=== PATIENT | male | born 1970 | race African-American/Black ===

== ENCOUNTER 2016-08-03 10:18 | Inpatient (IN) | payer OTHER ==
[2016-08-03 10:53] VITALS: BMI 33.9
--- NOTE | 2016-08-03 12:53 | HP ---
CIWA Score - CIWA Score Nausea/Vomitin-Mild Nausea/No Vomiting Muscle Tremors: 4-Moderate,w/Arms Extend Anxiety: 3 Agitation: 4-Moderately Restless Paroxysmal Sweats: 3 Orientation: 0-Oriented Tacttile Disturbances: 0-None Auditory Disturbances: 0-None Visual Disturbances: 0-None Headache: 0-None Present CIWA-Ar Total Score: 15 Admission ROS BHS - HPI Chief Complaint: I want to get clean and stay sober. Allergies/Adverse Reactions: Allergies Allergy/AdvReac Type Severity Reaction Status Date / Time [place] And Derivatives Allergy Severe Hives Verified 08/03/16 11:25 penicillin G Allergy Severe Hives Verified 08/03/16 11:25 lactose AdvReac Severe DIARRHEA Verified 08/03/16 11:25 History of Present Illness: pt is a 46yr old male with a history of alcohol and crack/cocaine dependence seeking detox for treatment. Exam Limitations: No Limitations - Ebola screening Have you traveled outside of the country in the last 21 days: No Have you had contact with anyone from an Ebola affected area: No Have you been sick,other than usual withdrawal symptoms: No Do you have a fever: No - Review of Systems Constitutional: Chills, Diaphoresis, Loss of Appetite, Night Sweats, Changes in sleep, Unintentional Wgt. Loss EENT: reports: No Symptoms Reported Respiratory: reports: Cough Cardiac: reports: Syncope GI: reports: Poor Appetite, Poor Fluid Intake, Indigestion : reports: No Symptoms Reported Musculoskeletal: reports: Back Pain, Joint Pain Integumentary: reports: Flushing, Sweating Neuro: reports: Headache, Tingling, Tremors Endocrine: reports: Excessive Sweating, Flushing, Intolerance to Cold, Intolerance to Heat Hematology: reports: Anemia Psychiatric: reports: No Sypmtoms Reported, Judgement Intact, Mood/Affect Appropiate, Orientated x3, Agitated Other Systems: Reviewed and Negative Patient History - Patient Medical History Hx Anemia: Yes Hx Asthma: Yes (albuterol) Hx Chronic Obstructive Pulmonary Disease (COPD): No Hx Cancer: No Hx Cardiac Disorders: No Hx Congestive Heart Failure: No Hx Hypertension: Yes Hx Hypercholesterolemia: No Hx Pacemaker: No HX Cerebrovascular Accident: No Hx Seizures: No Hx Dementia: No Hx Diabetes: No Hx Gastrointestinal Disorders: Yes (acid reflux) Hx Liver Disease: No Hx Genitourinary Disorders: No Hx Sexually Transmitted Disorders: Yes (gonorrhea) Hx Renal Disease (ESRD): No Hx Thyroid Disease: No Hx Human Immunodeficiency Virus (HIV): No (negative) Hx Hepatitis C: No (negative) Hx Depression: Yes Hx Suicide Attempt: Yes (pill overdose at age 13; denies any S/H ideation) Hx Bipolar Disorder: Yes Hx Schizophrenia: Yes - Patient Surgical History Past Surgical History: No Hx Neurologic Surgery: No Hx Cataract Extraction: No Hx Cardiac Surgery: No Hx Lung Surgery: No Hx Breast Surgery: No Hx Breast Biopsy: No Hx Abdominal Surgery: No Hx Appendectomy: No Hx Cholecystectomy: No Hx Genitourinary Surgery: No Hx Section: No Hx Orthopedic Surgery: No Anesthesia Reaction: No - PPD History Previous Implant?: Yes Documented Results: Negative w/o proof Implanted On Prior [facility] Admission?: No Date: 08/03/16 PPD to be Administered?: Yes - Reproductive History Patient is a Female of Child Bearing Age (11 -55 yrs old): No - Smoking Cessation Smoking history: Current every day smoker Have you smoked in the past 12 months: Yes Aproximately how many cigarettes per day: 10 Hx Chewing Tobacco Use: No Initiated information on smoking cessation: Yes 'Breaking Loose' booklet given: 08/03/16 - Substance & Tx. History Hx Alcohol Use: Yes Hx Substance Use: Yes Substance Use Type: Alcohol, Cocaine Hx Substance Use Treatment: Yes - Substances Abused Crack Route: Smoking Frequency: Daily Amount used: $30 Age of first use: 41 Date of Last Use: 08/01/16 Alcohol-vodka/beer Route: Oral Frequency: Daily Amount used: 2-3 pts./2-3 6 pks. Age of first use: 39 Date of Last Use: 08/02/16 Family Disease History - Family Disease History Family History: Denies Admission Physical Exam BHS - Vital Signs Vital Signs: Vital Signs - 24 hr 08/03/16 10:50 Temperature 96.1 F L Pulse Rate 67 Respiratory 16 Rate Blood Pressure 144/85 - Physical General Appearance: Yes: Appropriately Dressed, Moderate Distress, Tremorous, Irritable, Sweating, Anxious HEENTM: Yes: Hearing grossly Normal, Normal Voice Respiratory: Yes: Lungs Clear, Normal Breath Sounds, No Respiratory Distress Neck: Yes: No masses,lesions,Nodules Breast: Yes: Within Normal Limits Cardiology: Yes: Regular Rhythm, Regular Rate, S1, S2 Abdominal: Yes: Normal Bowel Sounds, Non Tender, Soft Genitourinary: Yes: Within Normal Limits Back: Yes: Normal Inspection Musculoskeletal: Yes: full range of Motion Extremities: Yes: Normal Capillary Refill, Normal Inspection, Non-Tender, Tremors Neurological: Yes: Fully Oriented, Alert, Normal Response Integumentary: Yes: Normal Color, Diaphoresis Lymphatic: Yes: Within Normal Limits - Diagnostic (1) Alcohol dependence with uncomplicated withdrawal Current Visit: Yes Status: Chronic (2) Hypertension Current Visit: Yes Status: Chronic Qualifiers: Hypertension type: essential hypertension Qualified Code(s): I10 - Essential (primary) hypertension (3) Asthma Current Visit: Yes Status: Chronic Qualifiers: Asthma severity: mild intermittent Asthma complication type: uncomplicated Qualified Code(s): J45.20 - Mild intermittent asthma, uncomplicated (4) Acid reflux Current Visit: Yes Status: Chronic Qualifiers: Esophagitis presence: without esophagitis Qualified Code(s): K21.9 - Gastro-esophageal reflux disease without esophagitis Cleared for Admission S - Detox or Rehab [facility] Level of Care: Medically Managed Detox Regimen/Protocol: Librium [facility] Breath Alcohol Content Breath Alcohol Content: 0 Urine Drug Screen - Results Drug Screen Negative: No Urine Drug Screen Results: NILSA-Cocaine
[2016-08-03] MEDS ORDERED: MAGNESIUM CITRATE 300 ML BOTTLE PO PRN (13:03)
[2016-08-03] MEDS ORDERED: LOPERAMIDE HCL 2 MG CAPSULE PO PRN (13:03)
[2016-08-03] MEDS ORDERED: hydrOXYzine PAMOATE 50 MG CAPSULE (FP) PO PRN (13:03)
[2016-08-03] MEDS ORDERED: IBUPROFEN 400 MG TABLET (FP) PO PRN (13:03)
[2016-08-03] MEDS ORDERED: P-EPHED 60MG/TRIPROLIDI 2.5MG TABLET PO PRN (13:03)
[2016-08-03] MEDS ORDERED: guaiFENesin/D-METHORPHAN HB 10 ML UNIT-DOSE CUPS PO PRN (13:03)
[2016-08-03] MEDS ORDERED: MAGNESIUM HYDROX 2400MG/30ML ORAL SUSPENSION 30 ML CUP PO PRN (13:03)
[2016-08-03] MEDS ORDERED: chlordiazePOXIDE HCL 25 MG CAPSULE PO PRN (13:03)
[2016-08-03] MEDS ORDERED: diphenhydrAMINE HCL 50 MG CAPSULE PO PRN (13:03)
[2016-08-03] MEDS ORDERED: NICOTINE POLACRILEX 4 MG GUM BC PRN (13:03)
[2016-08-03] MEDS ORDERED: MENTHOL/PHENOL 1 EACH UD MM PRN (13:03)
[2016-08-03] MEDS ORDERED: MAG HYDROX/AL HYDROX/SIMETH 30 ML UNIT-DOSE CUP PO PRN (13:03)
[2016-08-03] MEDS ORDERED: chlordiazePOXIDE HCL 25 MG CAPSULE PO ONE (13:09)
[2016-08-03] MEDS ORDERED: ALBUTEROL SO4 6.7 GM HFA INHALER IH PRN (13:16)
[2016-08-03] MEDS: amLODIPine BESYLATE 10 MG TABLET (FP) PO SCH (15:18)
--- NOTE | 2016-08-03 16:21 | EKG ---
Test Reason : Blood Pressure : / mmHG Vent. Rate : 071 BPM Atrial Rate : 071 BPM P-R Int : 164 ms QRS Dur : 084 ms QT Int : 380 ms P-R-T Axes : 059 080 054 degrees QTc Int : 412 ms NORMAL SINUS RHYTHM POSSIBLE LEFT ATRIAL ENLARGEMENT LEFT VENTRICULAR HYPERTROPHY NONSPECIFIC T WAVE ABNORMALITY ABNORMAL ECG NO PREVIOUS ECGS AVAILABLE Confirmed by LEONARD VARNER MD ([id number]) on 08/03/2016 4:21:24 PM Referred By: Confirmed By:LEONARD VARNER MD
--- NOTE | 2016-08-03 16:56 | CONSULT ---
[facility] Psychiatric Consult - Data Date of interview: 08/03/16 Admission source: [facility] Identifying data: First admission to [facility] for this 46 y/o AA male seeking detox treatment on for alcohol and cocaine (crack) dependence.Patient is single,a father of six,homeless,unemployed and supported on welfare. Substance Abuse History: - Smoking Cessation. Smoking history: Current every day smoker. Have you smoked in the past 12 months: Yes. Aproximately how many cigarettes per day: 10. Hx Chewing Tobacco Use: No. Initiated information on smoking cessation: Yes. 'Breaking Loose' booklet given: 08/03/16. - Substance & Tx. History. Hx Alcohol Use: Yes. Hx Substance Use: Yes. Substance Use Type : Alcohol, Cocaine. Hx Substance Use Treatment: Yes. - Substances Abused. Crack. Route: Smoking. Frequency: Daily. Amount used: $30. Age of first use : 41. Date of Last Use: 08/01/16. Alcohol-vodka/beer. Route: Oral. Frequency: Daily. Amount used: 2-3 pts./2-3 6 pks. Age of first use: 39. Date of Last Use: 08/02/16. Patient confirms this pattern of substance use in my interview. Medical History: GERD,bronchial asthma,hypercholesterolemia and a history of treatment for gonorrhea. Psychiatric History: No reported history of psychiatric hospitalizations.Patient is,however,diagnosed with " bipolar schizophrenia " and he is maintained on a regime of olanzapine and trazodone at his residential setting ([facility]).Doses are not recalled.Mr Peres reports a remote history of suicide attempt,age 13,via overdose with medications.Insomnia reported as severe. Physical/Sexual Abuse/Trauma History: Patient denies. Additional Comment: Urine Drug Screen Results: NILSA-Cocaine.Noted. Mental Status Exam - Mental Status Exam Alert and Oriented to: Time, Place, Person Cognitive Function: Good Patient Appearance: Unkempt, Disheveled Mood: Nervous, Withdrawn, Anxious, Apprehensive Affect: Mood Congruent Patient Behavior: Fatigued, Appropriate, Cooperative Speech Pattern: Clear, Appropriate Voice Loudness: Normal Thought Process: Goal Oriented Thought Disorder: Not Present Hallucinations: Denies Suicidal Ideation: Denies Homicidal Ideation: Denies Insight/Judgement: Poor Sleep: Poorly, Difficulty falling asleep Appetite: Good Muscle strength/Tone: Normal Gait/Station: Normal Psychiatric Findings - Problem List ([place] 1, 2,3) (1) Alcohol dependence with uncomplicated withdrawal Current Visit: Yes Status: Acute (2) Cocaine dependence Current Visit: Yes Status: Acute (3) Nicotine dependence Current Visit: Yes Status: Acute (4) Schizoaffective disorder Current Visit: Yes Status: Chronic Comment: Self-report. (5) Acid reflux Current Visit: Yes Status: Chronic Qualifiers: Esophagitis presence: without esophagitis Qualified Code(s): K21.9 - Gastro-esophageal reflux disease without esophagitis (6) Asthma Current Visit: Yes Status: Chronic Qualifiers: Asthma severity: mild intermittent Asthma complication type: uncomplicated Qualified Code(s): J45.20 - Mild intermittent asthma, uncomplicated (7) Hypertension Current Visit: Yes Status: Chronic Qualifiers: Hypertension type: essential hypertension Qualified Code(s): I10 - Essential (primary) hypertension - Initial Treatment Plan Initial Treatment Plan: Psychoeducation.Detoxification.Medications : depakote 750 mg po bid + olanzapine 15 mg po hs + trazodone 50 mg po hs.Doses of trazodone and zyprexa are slightly reduced to avoid oversedation from drug-drug interactions.Titration will follow in 24-48 hours if good tolerability is demonstrated.Side effects/benefits discussed with the patient,including the risk of priapism (trazodone).He gives his consent (verbal) to follow this careplan.Valproic acid level is ordered.Result will be followed.Observation.Medications confirmed via review of pharmacy claims @ [facility] (filled scripts on 07/21/16).See database on file.
[2016-08-03] MEDS: chlordiazePOXIDE HCL 25 MG CAPSULE PO SCH ×2 (17:34→22:38)
[2016-08-03 20:12] LABS: URINE APPEARANCE CLEAR; URINE BILIRUBIN NEGATIVE (NEGATIVE); URINE BLOOD NEGATIVE (NEGATIVE); URINE COLOR AMBER; URINE GLUCOSE (UA) NEGATIVE (NEGATIVE); URINE KETONE NEGATIVE (NEGATIVE); URINE NITRITE NEGATIVE (NEGATIVE); URINE UROBILINOGEN 4.0 E.U/dl E.U./dl (0.2-1.0)
[2016-08-03 20:13] LABS: URINE LEUK ESTERASE TRACE (NEGATIVE); URINE PROTEIN 1+ (NEGATIVE)
[2016-08-03 20:32] LABS: URINE MUCUS MANY; URINE RBC 2 /hpf (0-3); URINE WBC 5 /hpf (3-5)
[2016-08-03] MEDS: THIAMINE HCL 100 MG TABLET (FP) PO SCH (22:38)
[2016-08-03] MEDS: DIVALPROEX SODIUM 250 MG TABLET E.C. (FP) PO SCH (22:39)
[2016-08-03] MEDS: RANITIDINE HCL 150 MG TABLET (FP) PO SCH (22:39)
[2016-08-03] MEDS: OLANZapine 7.5 MG TABLET PO SCH (22:40)
[2016-08-03] MEDS: traZODone HCL 50 MG TABLET (FP) PO SCH (22:40)
--- NOTE | 2016-08-03 23:25 | PN ---
BHS Progress Note Note: received nurse call bp 154/98 50 mg librium administered repeat bp around 2 am continue detox
[2016-08-04] MEDS: chlordiazePOXIDE HCL 25 MG CAPSULE PO SCH ×4 (06:00→23:02)
[2016-08-04] MEDS: ACETAMINOPHEN 325 MG TABLET (FP) PO PRN ×2 (06:36→16:41)
[2016-08-04 10:15] LABS: MCH 27.2 pg (25.7-33.7); MCHC 33.5 g/dl (32.0-35.9); MEAN CELL VOLUME 81.3 fl (80-96); MEAN PLT VOLUME 8.8 fl (7.5-11.1); PLATELET COUNT 273 K/MM3 (134-434); RDW 13.9 % (11.9-15.9); WHITE BLOOD COUNT 7.7 K/mm3 (4.0-10.0)
[2016-08-04] MEDS: PRENATAL VITAMINS W/ FOLIC ACID TABLET (FP) PO SCH (10:30)
[2016-08-04] MEDS: amLODIPine BESYLATE 10 MG TABLET (FP) PO SCH (10:30)
[2016-08-04] MEDS: DIVALPROEX SODIUM 250 MG TABLET E.C. (FP) PO SCH ×2 (10:30→23:00)
[2016-08-04] MEDS: RANITIDINE HCL 150 MG TABLET (FP) PO SCH ×2 (10:31→23:01)
[2016-08-04] MEDS: NICOTINE 21 MG/24 HOURS TOPICAL PATCH TD SCH (10:31)
[2016-08-04 10:34] LABS: ALK PHOS 77 U/L (45-117); ANION GAP 12 (8-16); BILIRUBIN,TOTAL 0.7 mg/dL (0.2-1.0); CALCIUM 9.2 mg/dL (8.5-10.1); CO2 22 mmol/L (21-32); CREATININE 1.1 mg/dL (0.7-1.3); GLUCOSE,RANDOM 121 mg/dL (74-106); SGOT/AST 9 U/L (15-37); SGPT/ALT 12 U/L (12-78); TOT PROT 7.6 g/dl (6.4-8.2)
--- NOTE | 2016-08-04 10:39 | PN ---
S CIWA - CIWA Score Nausea/Vomitin-Mild Nausea/No Vomiting Muscle Tremors: 4-Moderate,w/Arms Extend Anxiety: 3 Agitation: 3 Paroxysmal Sweats: 4-Forehead w/Sweat Beads Orientation: 0-Oriented Tacttile Disturbances: 0-None Auditory Disturbances: 0-None Visual Disturbances: 0-None Headache: 0-None Present CIWA-Ar Total Score: 15 BHS Progress Note (SOAP) Subjective: Anxiety,tremors,sweating,interrupted sleep,restless.Pt. spiked temp 101F this morning Objective: 08/04/16 14:57 Vital Signs - 24 hr 08/03/16 08/03/16 08/04/16 17:34 22:10 00:48 Temperature 99.5 F 98.9 F Pulse Rate 66 95 H Respiratory 18 20 16 Rate Blood Pressure 127/69 154/98 08/04/16 08/04/16 08/04/16 03:30 06:35 09:56 Temperature 101 F H 99.3 F Pulse Rate 73 71 Respiratory 16 18 18 Rate Blood Pressure 154/91 147/95 08/04/16 14:00 Temperature 99.2 F Pulse Rate 78 Respiratory 18 Rate Blood Pressure 146/86 Lungs : grossly clear Heart : RR, no murmur Laboratory Tests 08/03/16 08/04/16 08/04/16 16:00 05:50 05:50 WBC 7.7 RBC 5.13 Hgb 14.0 Hct 41.7 MCV 81.3 MCHC 33.5 RDW 13.9 Plt Count 273 MPV 8.8 Sodium 136 Potassium 3.8 Chloride 102 Carbon Dioxide 22 Anion Gap 12 BUN 8 Creatinine 1.1 Creat Clearance w eGFR > 60 Random Glucose 121 H Calcium 9.2 Total Bilirubin 0.7 AST 9 L ALT 12 Alkaline Phosphatase 77 Total Protein 7.6 Albumin 4.0 Urine Color Cristina Urine Appearance Clear Urine pH 6.0 Ur Specific [place] 1.024 Urine Protein 1+ H Urine Glucose (UA) Negative Urine Ketones Negative Urine Blood Negative Urine Nitrite Negative Urine Bilirubin Negative Urine Urobilinogen 4.0 e.u/dl Ur Leukocyte Esterase Trace H Urine RBC 2 Urine WBC 5 Ur Epithelial Cells Few Urine Mucus Many Valproic Acid RPR Titer 08/04/16 08/04/16 05:50 06:00 WBC RBC Hgb Hct MCV MCHC RDW Plt Count MPV Sodium Potassium Chloride Carbon Dioxide Anion Gap BUN Creatinine Creat Clearance w eGFR Random Glucose Calcium Total Bilirubin AST ALT Alkaline Phosphatase Total Protein Albumin Urine Color Urine Appearance Urine pH Ur Specific [place] Urine Protein Urine Glucose (UA) Urine Ketones Urine Blood Urine Nitrite Urine Bilirubin Urine Urobilinogen Ur Leukocyte Esterase Urine RBC Urine WBC Ur Epithelial Cells Urine Mucus Valproic Acid < 3.000 L RPR Titer Nonreactive labs noted Cx-ray = RML infiltrate Assessment: 08/04/16 14:59 RML Pneumonia Plan: continue detox zithromax & doxycyclin
[2016-08-04] MEDS: AZITHROMYCIN 250 MG TABLET (FP) PO SCH (15:42)
[2016-08-04] MEDS: DOXYCYCLINE HYCLATE 100 MG TABLET PO SCH (17:57)
--- NOTE | 2016-08-04 18:55 | PN ---
S Progress Note Note: received nurse call patient had chest x ray, began antibiotic current temp 99F continue detox
[2016-08-04] MEDS: THIAMINE HCL 100 MG TABLET (FP) PO SCH (23:00)
[2016-08-04] MEDS: traZODone HCL 50 MG TABLET (FP) PO SCH (23:01)
[2016-08-04] MEDS: OLANZapine 7.5 MG TABLET PO SCH (23:01)
[2016-08-05] MEDS: chlordiazePOXIDE HCL 25 MG CAPSULE PO SCH ×2 (05:40→10:30)
[2016-08-05] MEDS: AZITHROMYCIN 250 MG TABLET (FP) PO SCH (10:29)
[2016-08-05] MEDS: DIVALPROEX SODIUM 500 MG TABLET E.C. PO SCH ×2 (10:29→22:30)
[2016-08-05] MEDS: RANITIDINE HCL 150 MG TABLET (FP) PO SCH ×2 (10:30→22:30)
[2016-08-05] MEDS: amLODIPine BESYLATE 10 MG TABLET (FP) PO SCH (10:30)
[2016-08-05] MEDS: PRENATAL VITAMINS W/ FOLIC ACID TABLET (FP) PO SCH (10:30)
[2016-08-05] MEDS: DOXYCYCLINE HYCLATE 100 MG TABLET PO SCH ×2 (10:30→17:25)
[2016-08-05] MEDS: NICOTINE 21 MG/24 HOURS TOPICAL PATCH TD SCH (10:32)
--- NOTE | 2016-08-05 16:47 | PN ---
S CIWA - CIWA Score Nausea/Vomitin-Mild Nausea/No Vomiting Muscle Tremors: 4-Moderate,w/Arms Extend Anxiety: 3 Agitation: 3 Paroxysmal Sweats: 4-Forehead w/Sweat Beads Orientation: 0-Oriented Tacttile Disturbances: 0-None Auditory Disturbances: 0-None Visual Disturbances: 0-None Headache: 0-None Present CIWA-Ar Total Score: 15 BHS Progress Note (SOAP) Subjective: Anxiety,tremors,sweating,interrupted sleep,restless Objective: 08/05/16 16:46 Vital Signs - 8 hr 08/05/16 08/05/16 10:22 13:40 Temperature 97.8 F 97.6 F Pulse Rate 75 87 Respiratory 18 18 Rate Blood Pressure 135/86 143/89 Laboratory Tests 08/03/16 08/04/16 08/04/16 16:00 05:50 05:50 WBC 7.7 RBC 5.13 Hgb 14.0 Hct 41.7 MCV 81.3 MCHC 33.5 RDW 13.9 Plt Count 273 MPV 8.8 Sodium 136 Potassium 3.8 Chloride 102 Carbon Dioxide 22 Anion Gap 12 BUN 8 Creatinine 1.1 Creat Clearance w eGFR > 60 Random Glucose 121 H Calcium 9.2 Total Bilirubin 0.7 AST 9 L ALT 12 Alkaline Phosphatase 77 Total Protein 7.6 Albumin 4.0 Urine Color Cristina Urine Appearance Clear Urine pH 6.0 Ur Specific [place] 1.024 Urine Protein 1+ H Urine Glucose (UA) Negative Urine Ketones Negative Urine Blood Negative Urine Nitrite Negative Urine Bilirubin Negative Urine Urobilinogen 4.0 e.u/dl Ur Leukocyte Esterase Trace H Urine RBC 2 Urine WBC 5 Ur Epithelial Cells Few Urine Mucus Many Valproic Acid RPR Titer 08/04/16 08/04/16 05:50 06:00 WBC RBC Hgb Hct MCV MCHC RDW Plt Count MPV Sodium Potassium Chloride Carbon Dioxide Anion Gap BUN Creatinine Creat Clearance w eGFR Random Glucose Calcium Total Bilirubin AST ALT Alkaline Phosphatase Total Protein Albumin Urine Color Urine Appearance Urine pH Ur Specific [place] Urine Protein Urine Glucose (UA) Urine Ketones Urine Blood Urine Nitrite Urine Bilirubin Urine Urobilinogen Ur Leukocyte Esterase Urine RBC Urine WBC Ur Epithelial Cells Urine Mucus Valproic Acid < 3.000 L RPR Titer Nonreactive labs noted Assessment: 08/05/16 16:47 withdrawal sx. Plan: continue detox
[2016-08-05] MEDS: chlordiazePOXIDE 5 MG CAPSULE PO SCH ×2 (17:25→22:29)
[2016-08-05] MEDS: THIAMINE HCL 100 MG TABLET (FP) PO SCH (22:29)
[2016-08-05] MEDS: OLANZapine 7.5 MG TABLET PO SCH (22:29)
[2016-08-05] MEDS: traZODone HCL 50 MG TABLET (FP) PO SCH (22:30)
[2016-08-06] MEDS: chlordiazePOXIDE 5 MG CAPSULE PO SCH ×2 (05:58→10:33)
[2016-08-06] MEDS: AZITHROMYCIN 250 MG TABLET (FP) PO SCH (10:33)
[2016-08-06] MEDS: DOXYCYCLINE HYCLATE 100 MG TABLET PO SCH ×2 (10:33→17:26)
[2016-08-06] MEDS: RANITIDINE HCL 150 MG TABLET (FP) PO SCH ×2 (10:33→22:45)
[2016-08-06] MEDS: PRENATAL VITAMINS W/ FOLIC ACID TABLET (FP) PO SCH (10:33)
[2016-08-06] MEDS: NICOTINE 21 MG/24 HOURS TOPICAL PATCH TD SCH (10:34)
[2016-08-06] MEDS: amLODIPine BESYLATE 10 MG TABLET (FP) PO SCH (10:34)
[2016-08-06] MEDS: DIVALPROEX SODIUM 500 MG TABLET E.C. PO SCH ×2 (10:34→22:46)
--- NOTE | 2016-08-06 13:26 | PN ---
BHS Progress Note (SOAP) Subjective: Sweating,interrupted sleep,restless Objective: 08/06/16 13:25 Vital Signs - 8 hr 08/06/16 08/06/16 06:45 09:58 Temperature 95.5 F L 96.1 F L Pulse Rate 69 86 Respiratory 18 18 Rate Blood Pressure 143/84 145/85 Laboratory Last Values WBC 7.7 K/mm3 (4.0-10.0) 08/04/16 05:50 RBC 5.13 M/mm3 (4.00-5.60) 08/04/16 05:50 Hgb 14.0 GM/dL (11.7-16.9) 08/04/16 05:50 Hct 41.7 % (35.4-49) 08/04/16 05:50 MCV 81.3 fl (80-96) 08/04/16 05:50 MCHC 33.5 g/dl (32.0-35.9) 08/04/16 05:50 RDW 13.9 % (11.9-15.9) 08/04/16 05:50 Plt Count 273 K/MM3 (134-434) 08/04/16 05:50 MPV 8.8 fl (7.5-11.1) 08/04/16 05:50 Sodium 136 mmol/L (136-145) 08/04/16 05:50 Potassium 3.8 mmol/L (3.5-5.1) 08/04/16 05:50 Chloride 102 mmol/L (98-107) 08/04/16 05:50 Carbon Dioxide 22 mmol/L (21-32) 08/04/16 05:50 Anion Gap 12 (8-16) 08/04/16 05:50 BUN 8 mg/dL (7-18) 08/04/16 05:50 Creatinine 1.1 mg/dL (0.7-1.3) 08/04/16 05:50 Creat Clearance w eGFR > 60 (>60) 08/04/16 05:50 Random Glucose 121 mg/dL (74-106) H 08/04/16 05:50 Calcium 9.2 mg/dL (8.5-10.1) 08/04/16 05:50 Total Bilirubin 0.7 mg/dL (0.2-1.0) 08/04/16 05:50 AST 9 U/L (15-37) L 08/04/16 05:50 ALT 12 U/L (12-78) 08/04/16 05:50 Alkaline Phosphatase 77 U/L (45-117) 08/04/16 05:50 Total Protein 7.6 g/dl (6.4-8.2) 08/04/16 05:50 Albumin 4.0 g/dl (3.4-5.0) 08/04/16 05:50 Urine Color Cristina 08/03/16 16:00 Urine Appearance Clear 08/03/16 16:00 Urine pH 6.0 (5.0-8.0) 08/03/16 16:00 Ur Specific [place] 1.024 (1.001-1.035) 08/03/16 16:00 Urine Protein 1+ (NEGATIVE) H 08/03/16 16:00 Urine Glucose (UA) Negative (NEGATIVE) 08/03/16 16:00 Urine Ketones Negative (NEGATIVE) 08/03/16 16:00 Urine Blood Negative (NEGATIVE) 08/03/16 16:00 Urine Nitrite Negative (NEGATIVE) 08/03/16 16:00 Urine Bilirubin Negative (NEGATIVE) 08/03/16 16:00 Urine Urobilinogen 4.0 e.u/dl E.U./dl (0.2-1.0) 08/03/16 16:00 Ur Leukocyte Esterase Trace (NEGATIVE) H 08/03/16 16:00 Urine RBC 2 /hpf (0-3) 08/03/16 16:00 Urine WBC 5 /hpf (3-5) 08/03/16 16:00 Ur Epithelial Cells Few /hpf (FEW) 08/03/16 16:00 Urine Mucus Many 08/03/16 16:00 Valproic Acid 72.590 ug/ml (50-100) 08/06/16 07:00 RPR Titer Nonreactive (NONREACTIVE) 08/04/16 05:50 labs noted Assessment: 08/06/16 13:26 Withdrawal sx. Plan: Continue detox
[2016-08-06] MEDS: chlordiazePOXIDE HCL 10 MG CAPSULE PO SCH ×2 (17:26→22:45)
[2016-08-06] MEDS: THIAMINE HCL 100 MG TABLET (FP) PO SCH (22:45)
[2016-08-06] MEDS: OLANZapine 7.5 MG TABLET PO SCH (22:46)
[2016-08-06] MEDS: traZODone HCL 50 MG TABLET (FP) PO SCH (22:46)
[2016-08-07] MEDS: chlordiazePOXIDE HCL 10 MG CAPSULE PO SCH ×2 (06:08→10:24)
[2016-08-07 09:43] VITALS: BP 146/94; PULSE 78; TEMP 98.9
[2016-08-07] MEDS: PRENATAL VITAMINS W/ FOLIC ACID TABLET (FP) PO SCH (10:23)
[2016-08-07] MEDS: amLODIPine BESYLATE 10 MG TABLET (FP) PO SCH (10:23)
[2016-08-07] MEDS: RANITIDINE HCL 150 MG TABLET (FP) PO SCH (10:23)
[2016-08-07] MEDS: AZITHROMYCIN 250 MG TABLET (FP) PO SCH (10:23)
[2016-08-07] MEDS: DOXYCYCLINE HYCLATE 100 MG TABLET PO SCH (10:24)
[2016-08-07] MEDS: NICOTINE 21 MG/24 HOURS TOPICAL PATCH TD SCH (10:24)
[2016-08-07] MEDS: DIVALPROEX SODIUM 500 MG TABLET E.C. PO SCH (10:24)
--- NOTE | 2016-08-07 10:32 | DS ---
[facility] Detox Discharge Summary Admission Date: 08/03/16 Discharge Date: 08/07/16 - History Present History: Alcohol Dependence, Cocaine Dependence Additional Comments: DETOX COMPLETED. ALERT O X 3. NAD. Pertinent Past History: ANEMIA ASTHMA HTN GERD DEPRESSION - Physical Exam Results Vital Signs: Vital Signs Temperature 98.9 F 08/07/16 09:42 Pulse Rate 78 08/07/16 09:42 Respiratory Rate 18 08/07/16 09:42 Blood Pressure 146/94 08/07/16 09:42 O2 Sat by Pulse Oximetry (%) Pertinent Admission Physical Exam Findings: WITHDRAWAL SX - Treatment Hospital Course: Detox Protocol Followed, Detoxed Safely, Responded well, Discharged Condition Good - Medication Discharge Medications: Ambulatory Orders Albuterol Sulfate Inhaler - [Ventolin Hfa Inhaler -] 2 inh PO Q4H PRN 08/03/16 Amlodipine Besylate [Norvasc -] 10 mg PO DAILY 08/03/16 Divalproex [Depakote -] 500 mg PO AM 08/03/16 Olanzapine [Zyprexa] 20 mg PO HS 08/03/16 Ranitidine [Zantac -] 150 mg PO BID 08/03/16 Trazodone HCl [Desyrel -] 150 mg PO HS 08/03/16 Divalproex [Depakote -] 1,000 mg PO HS #60 tablet.ec 08/05/16 Olanzapine [Zyprexa] 20 mg PO HS #30 tablet 08/05/16 - Diagnosis (1) Schizoaffective disorder Current Visit: Yes Status: Chronic - AMA Did Patient Leave Against Medical Advice: No
== END 2016-08-07 12:28 | disposition other institution (70) | DRG 774 ==
LOC: YASAS 10:18 → Y3N 12:06
PROVIDERS: ADMIT Internal Medicine; ATTEND Internal Medicine
PROC: HZ2ZZZZ Detoxification Services for Substance Abuse Treatment (ICD-10-PCS; principal; 2016-08-07)
DX: F10.230 Alcohol dependence with withdrawal, uncomplicated (principal); F14.20 Cocaine dependence, uncomplicated; F17.210 Nicotine dependence, cigarettes, uncomplicated; F25.9 Schizoaffective disorder, unspecified; I10 Essential (primary) hypertension; K21.9 Gastro-esophageal reflux disease without esophagitis; J45.20 Mild intermittent asthma, uncomplicated; Z59.0 Homelessness
CPT/HCPCS: 36415; 71020-TC; 80053; 80164; 81003; 81015; 85027; 86593; 87899; 93005; 93010

== ENCOUNTER 2016-08-07 12:36 | Inpatient (IN) | payer OTHER ==
--- NOTE | 2016-08-07 13:48 | HP ---
Psychiatrist Admission - Data Date of interview: 08/07/16 Admission source: 3N Identifying data: This is the first 5N inpatient rehabilitation admission for this 46 year old single black male father of 7, unemployed and on [place], currently homeless. Medical History: GERD, bronchial asthma, hypercholesterolemia and a history of treatment for gonorrhea, smokes cigarettes 10-15 a day. Psychiatric History: Patient reports was dianosed as biopola, schizophrenia and "acute anxiety", reports he was hospitalized a while in long term, states he served 20 years in long term, in and out, sees at [facility] and currently on Depakote 500 mg po daily and 1000 mg po hs, Zyprexa 20 mg po daily and Trazodone 150 mg po hs. Patient was seen by Dr. Severino and continue his medications. Patient reports suicide attempt, at age 13,via overdose with medications. Physical/Sexual Abuse/Trauma History: Denies history of sexual, physical and verbal abuse. Allergies/Adverse Reactions: Allergies Allergy/AdvReac Type Severity Reaction Status Date / Time [place] And Derivatives Allergy Severe Hives Verified 08/03/16 11:25 penicillin G Allergy Severe Hives Verified 08/03/16 11:25 lactose AdvReac Severe DIARRHEA Verified 08/03/16 11:25 Date of last physical exam: 08/03/16 Concur with the findings of this exam: Yes - Substance Abuse/Tx History Hx Alcohol Use: Yes Substance Use Type: Cocaine - Admission Criteria Previous failed treatment: Yes Poor recovery environment: Yes Comorbidities: Yes Lacks judgement: Yes Mental Status Exam - Mental Status Exam Alert and Oriented to: Time, Place, Person Cognitive Function: Grossly Intact Patient Appearance: Unkempt Mood: Apathetic, Sad Affect: Mood Congruent Patient Behavior: Appropriate, Cooperative Speech Pattern: Appropriate Voice Loudness: Normal Thought Process: Goal Oriented Thought Disorder: Not Present Hallucinations: Denies Suicidal Ideation: Denies Homicidal Ideation: Denies Insight/Judgement: Fair Sleep: Fair Appetite: Fair Muscle strength/Tone: Normal Gait/Station: Normal Psychiatric Findings - Problem List ([place] 1, 2,3) (1) Cocaine dependence Current Visit: No Status: Acute (2) Nicotine dependence Current Visit: No Status: Acute (3) Acid reflux Current Visit: No Status: Chronic Qualifiers: Esophagitis presence: without esophagitis Qualified Code(s): K21.9 - Gastro-esophageal reflux disease without esophagitis (4) Asthma Current Visit: No Status: Chronic Qualifiers: Asthma severity: mild intermittent Asthma complication type: uncomplicated Qualified Code(s): J45.20 - Mild intermittent asthma, uncomplicated (5) Hypertension Current Visit: No Status: Chronic Qualifiers: Hypertension type: essential hypertension Qualified Code(s): I10 - Essential (primary) hypertension (6) Schizoaffective disorder Current Visit: No Status: Chronic Comment: Self-report. (7) Alcohol dependence Current Visit: Yes Status: Acute - Initial Treatment Plan Initial Treatment Plan: will continue his current medications, monitor rpogress as needed.
[2016-08-07] MEDS ORDERED: MAG HYDROX/AL HYDROX/SIMETH 30 ML UNIT-DOSE CUP PO PRN (15:23)
[2016-08-07] MEDS ORDERED: MAGNESIUM CITRATE 300 ML BOTTLE PO PRN (15:23)
[2016-08-07] MEDS ORDERED: ACETAMINOPHEN 325 MG TABLET (FP) PO PRN (15:23)
[2016-08-07] MEDS ORDERED: MENTHOL/PHENOL 1 EACH UD MM PRN (15:23)
[2016-08-07] MEDS ORDERED: MAGNESIUM HYDROX 2400MG/30ML ORAL SUSPENSION 30 ML CUP PO PRN (15:23)
[2016-08-07] MEDS ORDERED: P-EPHED 60MG/TRIPROLIDI 2.5MG TABLET PO PRN (15:23)
[2016-08-07] MEDS ORDERED: guaiFENesin/D-METHORPHAN HB 10 ML UNIT-DOSE CUPS PO PRN (15:23)
[2016-08-07] MEDS ORDERED: ALBUTEROL SO4 6.7 GM HFA INHALER IH PRN (15:23)
[2016-08-07] MEDS ORDERED: IBUPROFEN 400 MG TABLET (FP) PO PRN (15:23)
[2016-08-07] MEDS ORDERED: LOPERAMIDE HCL 2 MG CAPSULE PO PRN (15:23)
--- NOTE | 2016-08-07 15:26 | HP ---
[facility] Rehab Assess/Revision - Admission History [facility] Date of Admission to Rehab: 08/07/16 - Findings Detox History & Physical reviewed: Yes Concur with findings: Yes Comments/Additional Findings: for rehab as protocol
[2016-08-07] MEDS: DOXYCYCLINE HYCLATE 100 MG TABLET PO SCH (17:50)
[2016-08-07] MEDS: RANITIDINE HCL 150 MG TABLET (FP) PO SCH (21:35)
[2016-08-07] MEDS: DIVALPROEX SODIUM 500 MG TABLET E.C. PO SCH (21:35)
[2016-08-07] MEDS: OLANZapine 10 MG TABLET PO SCH (21:36)
[2016-08-07] MEDS: THIAMINE HCL 100 MG TABLET (FP) PO SCH (21:36)
[2016-08-07] MEDS: traZODone HCL 50 MG TABLET (FP) PO SCH (21:36)
[2016-08-08] MEDS: AZITHROMYCIN 250 MG TABLET (FP) PO SCH (10:03)
[2016-08-08] MEDS: PRENATAL VITAMINS W/ FOLIC ACID TABLET (FP) PO SCH (10:04)
[2016-08-08] MEDS: ASPIRIN COATED 81 MG TABLET.EC PO SCH (10:05)
[2016-08-08] MEDS: DIVALPROEX SODIUM 500 MG TABLET E.C. PO SCH ×2 (10:05→21:19)
[2016-08-08] MEDS: amLODIPine BESYLATE 10 MG TABLET (FP) PO SCH (10:05)
[2016-08-08] MEDS: RANITIDINE HCL 150 MG TABLET (FP) PO SCH ×2 (10:05→21:19)
[2016-08-08] MEDS: DOXYCYCLINE HYCLATE 100 MG TABLET PO SCH ×2 (10:05→18:57)
[2016-08-08] MEDS: OLANZapine 10 MG TABLET PO SCH (21:19)
[2016-08-08] MEDS: THIAMINE HCL 100 MG TABLET (FP) PO SCH (21:20)
[2016-08-08] MEDS: traZODone HCL 50 MG TABLET (FP) PO SCH (21:20)
[2016-08-08] MEDS: diphenhydrAMINE HCL 50 MG CAPSULE PO PRN (22:33)
[2016-08-09] MEDS: DIVALPROEX SODIUM 500 MG TABLET E.C. PO SCH ×2 (10:15→21:12)
[2016-08-09] MEDS: PRENATAL VITAMINS W/ FOLIC ACID TABLET (FP) PO SCH (10:15)
[2016-08-09] MEDS: DOXYCYCLINE HYCLATE 100 MG TABLET PO SCH ×2 (10:15→18:04)
[2016-08-09] MEDS: ASPIRIN COATED 81 MG TABLET.EC PO SCH (10:15)
[2016-08-09] MEDS: AZITHROMYCIN 250 MG TABLET (FP) PO SCH (10:15)
[2016-08-09] MEDS: amLODIPine BESYLATE 10 MG TABLET (FP) PO SCH (10:15)
[2016-08-09] MEDS: RANITIDINE HCL 150 MG TABLET (FP) PO SCH ×2 (10:16→21:12)
[2016-08-09] MEDS: traZODone HCL 50 MG TABLET (FP) PO SCH (21:11)
[2016-08-09] MEDS: OLANZapine 10 MG TABLET PO SCH (21:12)
[2016-08-09] MEDS: diphenhydrAMINE HCL 50 MG CAPSULE PO PRN (21:12)
[2016-08-09] MEDS: THIAMINE HCL 100 MG TABLET (FP) PO SCH (21:12)
[2016-08-10] MEDS: PRENATAL VITAMINS W/ FOLIC ACID TABLET (FP) PO SCH (09:50)
[2016-08-10] MEDS: ASPIRIN COATED 81 MG TABLET.EC PO SCH (09:50)
[2016-08-10] MEDS: RANITIDINE HCL 150 MG TABLET (FP) PO SCH ×2 (09:50→21:27)
[2016-08-10] MEDS: amLODIPine BESYLATE 10 MG TABLET (FP) PO SCH (09:50)
[2016-08-10] MEDS: DIVALPROEX SODIUM 500 MG TABLET E.C. PO SCH ×2 (09:50→21:27)
[2016-08-10] MEDS: AZITHROMYCIN 250 MG TABLET (FP) PO SCH (09:50)
[2016-08-10] MEDS: DOXYCYCLINE HYCLATE 100 MG TABLET PO SCH (09:52)
[2016-08-10] MEDS: traZODone HCL 50 MG TABLET (FP) PO SCH (21:27)
[2016-08-10] MEDS: THIAMINE HCL 100 MG TABLET (FP) PO SCH (21:27)
[2016-08-10] MEDS: OLANZapine 10 MG TABLET PO SCH (21:28)
[2016-08-10] MEDS ORDERED: DOXYCYCLINE HYCLATE 100 MG TABLET PO SCH (21:45)
[2016-08-10] MEDS: diphenhydrAMINE HCL 50 MG CAPSULE PO PRN (21:55)
[2016-08-11] MEDS: PRENATAL VITAMINS W/ FOLIC ACID TABLET (FP) PO SCH (09:27)
[2016-08-11] MEDS: RANITIDINE HCL 150 MG TABLET (FP) PO SCH ×2 (09:27→21:31)
[2016-08-11] MEDS: AZITHROMYCIN 250 MG TABLET (FP) PO SCH (09:28)
[2016-08-11] MEDS: DIVALPROEX SODIUM 500 MG TABLET E.C. PO SCH ×2 (09:28→21:31)
[2016-08-11] MEDS: ASPIRIN COATED 81 MG TABLET.EC PO SCH (09:28)
[2016-08-11] MEDS: amLODIPine BESYLATE 10 MG TABLET (FP) PO SCH (09:28)
[2016-08-11] MEDS: OLANZapine 10 MG TABLET PO SCH (21:31)
[2016-08-11] MEDS: traZODone HCL 50 MG TABLET (FP) PO SCH (21:31)
[2016-08-11] MEDS: THIAMINE HCL 100 MG TABLET (FP) PO SCH (21:31)
[2016-08-11] MEDS: diphenhydrAMINE HCL 50 MG CAPSULE PO PRN (21:31)
[2016-08-12] MEDS: ASPIRIN COATED 81 MG TABLET.EC PO SCH (09:52)
[2016-08-12] MEDS: amLODIPine BESYLATE 10 MG TABLET (FP) PO SCH (09:52)
[2016-08-12] MEDS: PRENATAL VITAMINS W/ FOLIC ACID TABLET (FP) PO SCH (09:52)
[2016-08-12] MEDS: RANITIDINE HCL 150 MG TABLET (FP) PO SCH ×2 (09:52→21:30)
[2016-08-12] MEDS: DIVALPROEX SODIUM 500 MG TABLET E.C. PO SCH ×2 (09:52→21:29)
[2016-08-12] MEDS: traZODone HCL 50 MG TABLET (FP) PO SCH (21:30)
[2016-08-12] MEDS: diphenhydrAMINE HCL 50 MG CAPSULE PO PRN (21:30)
[2016-08-12] MEDS: OLANZapine 10 MG TABLET PO SCH (21:30)
[2016-08-12] MEDS: THIAMINE HCL 100 MG TABLET (FP) PO SCH (21:31)
[2016-08-13] MEDS: DIVALPROEX SODIUM 500 MG TABLET E.C. PO SCH ×2 (09:48→21:35)
[2016-08-13] MEDS: ASPIRIN COATED 81 MG TABLET.EC PO SCH (09:48)
[2016-08-13] MEDS: RANITIDINE HCL 150 MG TABLET (FP) PO SCH ×2 (09:48→21:36)
[2016-08-13] MEDS: PRENATAL VITAMINS W/ FOLIC ACID TABLET (FP) PO SCH (09:48)
[2016-08-13] MEDS: amLODIPine BESYLATE 10 MG TABLET (FP) PO SCH (09:48)
[2016-08-13] MEDS: traZODone HCL 50 MG TABLET (FP) PO SCH (21:35)
[2016-08-13] MEDS: diphenhydrAMINE HCL 50 MG CAPSULE PO PRN (21:36)
[2016-08-13] MEDS: THIAMINE HCL 100 MG TABLET (FP) PO SCH (21:36)
[2016-08-13] MEDS: OLANZapine 10 MG TABLET PO SCH (21:38)
[2016-08-14] MEDS: RANITIDINE HCL 150 MG TABLET (FP) PO SCH ×2 (09:41→21:44)
[2016-08-14] MEDS: amLODIPine BESYLATE 10 MG TABLET (FP) PO SCH (09:41)
[2016-08-14] MEDS: ASPIRIN COATED 81 MG TABLET.EC PO SCH (09:41)
[2016-08-14] MEDS: DIVALPROEX SODIUM 500 MG TABLET E.C. PO SCH ×2 (09:41→21:44)
[2016-08-14] MEDS: PRENATAL VITAMINS W/ FOLIC ACID TABLET (FP) PO SCH (09:42)
[2016-08-14] MEDS: OLANZapine 10 MG TABLET PO SCH (21:44)
[2016-08-14] MEDS: traZODone HCL 50 MG TABLET (FP) PO SCH (21:44)
[2016-08-14] MEDS: THIAMINE HCL 100 MG TABLET (FP) PO SCH (21:45)
[2016-08-14] MEDS: diphenhydrAMINE HCL 50 MG CAPSULE PO PRN (21:46)
[2016-08-15] MEDS: PRENATAL VITAMINS W/ FOLIC ACID TABLET (FP) PO SCH (09:51)
[2016-08-15] MEDS: RANITIDINE HCL 150 MG TABLET (FP) PO SCH ×2 (09:51→21:36)
[2016-08-15] MEDS: ASPIRIN COATED 81 MG TABLET.EC PO SCH (09:51)
[2016-08-15] MEDS: amLODIPine BESYLATE 10 MG TABLET (FP) PO SCH (09:51)
[2016-08-15] MEDS: DIVALPROEX SODIUM 500 MG TABLET E.C. PO SCH ×2 (09:51→21:36)
[2016-08-15] MEDS: traZODone HCL 50 MG TABLET (FP) PO SCH (21:36)
[2016-08-15] MEDS: THIAMINE HCL 100 MG TABLET (FP) PO SCH (21:36)
[2016-08-15] MEDS: OLANZapine 10 MG TABLET PO SCH (21:36)
[2016-08-15] MEDS: diphenhydrAMINE HCL 50 MG CAPSULE PO PRN (21:37)
[2016-08-16] MEDS: diphenhydrAMINE HCL 50 MG CAPSULE PO PRN ×2 (00:17→21:50)
[2016-08-16] MEDS: DIVALPROEX SODIUM 500 MG TABLET E.C. PO SCH ×2 (10:01→21:49)
[2016-08-16] MEDS: RANITIDINE HCL 150 MG TABLET (FP) PO SCH ×2 (10:01→21:50)
[2016-08-16] MEDS: amLODIPine BESYLATE 10 MG TABLET (FP) PO SCH (10:01)
[2016-08-16] MEDS: ASPIRIN COATED 81 MG TABLET.EC PO SCH (10:01)
[2016-08-16] MEDS: PRENATAL VITAMINS W/ FOLIC ACID TABLET (FP) PO SCH (10:02)
[2016-08-16] MEDS: traZODone HCL 50 MG TABLET (FP) PO SCH (21:49)
[2016-08-16] MEDS: OLANZapine 10 MG TABLET PO SCH (21:50)
[2016-08-16] MEDS: THIAMINE HCL 100 MG TABLET (FP) PO SCH (21:50)
[2016-08-17] MEDS: amLODIPine BESYLATE 10 MG TABLET (FP) PO SCH (09:44)
[2016-08-17] MEDS: DIVALPROEX SODIUM 500 MG TABLET E.C. PO SCH ×2 (09:44→21:11)
[2016-08-17] MEDS: PRENATAL VITAMINS W/ FOLIC ACID TABLET (FP) PO SCH (09:44)
[2016-08-17] MEDS: ASPIRIN COATED 81 MG TABLET.EC PO SCH (09:44)
[2016-08-17] MEDS: RANITIDINE HCL 150 MG TABLET (FP) PO SCH ×2 (09:44→21:11)
--- NOTE | 2016-08-17 14:54 | PN ---
Psychiatric Progress Note Vital Signs: Vital Signs Period Temp Pulse Resp BP Sys/Angel Pulse Ox Last 24 Hr 97.8 F 83-84 18-18 140-162/83-90 Date of Session: 08/17/16 Chief Complaint:: "anxious" HPI: Patient is addressing alcohol, cocaine , nicotine dependence comorbid Schizoafective disorder. ROS: HTN,Asthma and acid reflex medically managed. Current Medications: Active Medications Generic Name Dose Route Start Last Admin Trade Name Freq PRN Reason Stop Dose Admin Acetaminophen 650 mg 08/07/16 15:23 Tylenol - PO Q4H PRN FEVER OR PAIN Al Hydroxide/Mg Hydroxide 30 ml 08/07/16 15:23 Mylanta Oral Suspension - PO Q6H PRN DYSPEPSIA Albuterol Sulfate 2 puff 08/07/16 15:23 Ventolin Hfa Inhaler - IH Q4H PRN ASTHMA Amlodipine Besylate 10 mg 08/08/16 10:00 08/17/16 09:44 Norvasc - PO 10 mg DAILY CAM Administration Aspirin 81 mg 08/08/16 10:00 08/17/16 09:44 Ecotrin - PO 81 mg DAILY CAM Administration Diphenhydramine HCl 50 mg 08/17/16 22:00 Benadryl - PO HS CAM Divalproex Sodium 1,000 mg 08/07/16 22:00 08/16/16 21:49 Depakote - PO 1,000 mg HS CAM Administration Divalproex Sodium 500 mg 08/08/16 10:00 08/17/16 09:44 Depakote - PO 500 mg DAILY CAM Administration Eucalyptus/Menthol/Phenol/Sorbitol 1 each 08/07/16 15:23 Cepastat Lozenge - MM Q4H PRN SORE THROAT Guaifenesin 10 ml 08/07/16 15:23 Robitussin Dm - PO Q6H PRN COUGH Hydroxyzine Pamoate 50 mg 08/07/16 15:23 Vistaril - PO Q4H PRN AGITATION Ibuprofen 400 mg 08/07/16 15:23 Motrin - PO Q6H PRN PAIN Loperamide HCl 4 mg 08/07/16 15:23 Imodium - PO Q6H PRN DIARRHEA Magnesium Hydroxide 30 ml 08/07/16 15:23 Milk Of Magnesia - PO DAILY PRN CONSTIPATION Olanzapine 20 mg 08/07/16 22:00 08/16/16 21:50 Zyprexa - PO 20 mg HS CAM Administration Multivit/Folic Acid/Iron 1 tab 08/08/16 10:00 08/17/16 09:44 Vitamins (Sjr) - PO 1 tab DAILY CAM Administration Pseudoephedrine/Triprolidine 1 combo 08/07/16 15:23 Actifed - PO TID PRN NASAL CONGESTION Ranitidine HCl 150 mg 08/07/16 22:00 08/17/16 09:44 Zantac - PO 150 mg BID CAM Administration Thiamine HCl 100 mg 08/07/16 22:00 08/16/16 21:50 Vitamin B1 - PO 100 mg HS CAM Administration Trazodone HCl 150 mg 08/07/16 22:00 08/16/16 21:49 Desyrel - PO 150 mg HS CAM Administration Medication(s) Change(s): Benadryl HS scheduled Current Side Effect: No Lab tests ordered: Yes (depakote level in am) Lab tests reviewed: Yes Provider note:: Patient reports he wants to take Benadryl as standart medications and not as PRN, he reports he gets anxious and easily upset if he does not get all his pills at nights,that's why he needs Benadryl every night reports that he takes all his meds when he is home as scheduled and just want to continue his routine, patient was visibyly upset and anxious talking about his medications.. Psychoeducation and supportive therapy provided, patient made aware that blood work for depakote was ordered in am he agreed with the plan, Benadryl changed from PRN to standart regimen, will continue to monitor progress. Total face to face time:: 35 Mental Status Exam - Mental Status Exam Alert and Oriented to: Time, Place, Person Cognitive Function: Grossly Intact Patient Appearance: Well Groomed Mood: Depressed, Sad, Anxious, Irritable Affect: Mood Congruent Patient Behavior: Appropriate, Cooperative Speech Pattern: Clear, Appropriate Voice Loudness: Normal Thought Process: Intact Thought Disorder: Not Present Hallucinations: Denies Suicidal Ideation: Denies Homicidal Ideation: Denies Insight/Judgement: Fair Sleep: Difficulty falling asleep Appetite: Good Muscle strength/Tone: Normal Gait/Station: Normal Psychiatric Treatment Plan - Problem List (1) Cocaine dependence Current Visit: No (2) Nicotine dependence Current Visit: No (3) Acid reflux Current Visit: No Qualifiers: Esophagitis presence: without esophagitis Qualified Code(s): K21.9 - Gastro-esophageal reflux disease without esophagitis (4) Asthma Current Visit: No Qualifiers: Asthma severity: mild intermittent Asthma complication type: uncomplicated Qualified Code(s): J45.20 - Mild intermittent asthma, uncomplicated (5) Hypertension Current Visit: No Qualifiers: Hypertension type: essential hypertension Qualified Code(s): I10 - Essential (primary) hypertension (6) Schizoaffective disorder Current Visit: No Comment: Self-report. (7) Alcohol dependence Current Visit: Yes
[2016-08-17] MEDS: hydrOXYzine PAMOATE 50 MG CAPSULE (FP) PO PRN (15:32)
[2016-08-17] MEDS: OLANZapine 10 MG TABLET PO SCH (21:11)
[2016-08-17] MEDS: traZODone HCL 50 MG TABLET (FP) PO SCH (21:11)
[2016-08-17] MEDS: diphenhydrAMINE HCL 50 MG CAPSULE PO SCH (21:11)
[2016-08-17] MEDS: THIAMINE HCL 100 MG TABLET (FP) PO SCH (21:11)
[2016-08-18] MEDS: RANITIDINE HCL 150 MG TABLET (FP) PO SCH ×2 (09:48→21:30)
[2016-08-18] MEDS: ASPIRIN COATED 81 MG TABLET.EC PO SCH (09:48)
[2016-08-18] MEDS: DIVALPROEX SODIUM 500 MG TABLET E.C. PO SCH ×2 (09:48→21:30)
[2016-08-18] MEDS: amLODIPine BESYLATE 10 MG TABLET (FP) PO SCH (09:48)
[2016-08-18] MEDS: PRENATAL VITAMINS W/ FOLIC ACID TABLET (FP) PO SCH (09:48)
[2016-08-18] MEDS: hydrOXYzine PAMOATE 50 MG CAPSULE (FP) PO PRN (12:47)
[2016-08-18] MEDS: traZODone HCL 50 MG TABLET (FP) PO SCH (21:30)
[2016-08-18] MEDS: diphenhydrAMINE HCL 50 MG CAPSULE PO SCH (21:30)
[2016-08-18] MEDS: OLANZapine 10 MG TABLET PO SCH (21:30)
[2016-08-18] MEDS: THIAMINE HCL 100 MG TABLET (FP) PO SCH (21:30)
[2016-08-19] MEDS: amLODIPine BESYLATE 10 MG TABLET (FP) PO SCH (10:12)
[2016-08-19] MEDS: RANITIDINE HCL 150 MG TABLET (FP) PO SCH ×2 (10:12→21:28)
[2016-08-19] MEDS: ASPIRIN COATED 81 MG TABLET.EC PO SCH (10:12)
[2016-08-19] MEDS: PRENATAL VITAMINS W/ FOLIC ACID TABLET (FP) PO SCH (10:13)
[2016-08-19] MEDS: DIVALPROEX SODIUM 500 MG TABLET E.C. PO SCH ×2 (10:34→21:28)
[2016-08-19] MEDS: hydrOXYzine PAMOATE 50 MG CAPSULE (FP) PO PRN ×2 (12:16→23:47)
--- NOTE | 2016-08-19 14:21 | PN ---
[facility] Progress Note Note: c/o aches, pains , chills , sweats x 1 day no fever . Tx'ed for rml pn with B's t 98.4, r- 17/m , pulse 0x 97% on ra, p-84/m lungs cleat to a/o cor rrr w/o m ? viral synd r/o pn plan - cxr -repeat cbc sma7 motrin prn fluids
[2016-08-19] MEDS: traZODone HCL 50 MG TABLET (FP) PO SCH (21:28)
[2016-08-19] MEDS: diphenhydrAMINE HCL 50 MG CAPSULE PO SCH (21:28)
[2016-08-19] MEDS: OLANZapine 10 MG TABLET PO SCH (21:29)
[2016-08-19] MEDS: THIAMINE HCL 100 MG TABLET (FP) PO SCH (21:29)
[2016-08-20] MEDS: DIVALPROEX SODIUM 500 MG TABLET E.C. PO SCH ×2 (10:09→21:14)
[2016-08-20] MEDS: RANITIDINE HCL 150 MG TABLET (FP) PO SCH ×2 (10:09→21:15)
[2016-08-20] MEDS: PRENATAL VITAMINS W/ FOLIC ACID TABLET (FP) PO SCH (10:09)
[2016-08-20] MEDS: ASPIRIN COATED 81 MG TABLET.EC PO SCH (10:09)
[2016-08-20] MEDS: amLODIPine BESYLATE 10 MG TABLET (FP) PO SCH (10:09)
[2016-08-20] MEDS: hydrOXYzine PAMOATE 50 MG CAPSULE (FP) PO PRN ×2 (10:14→23:15)
[2016-08-20 14:56] LABS: BASOPHIL 0.4 % (0-2.0); EOSINOPHIL 1.9 % (0-4.5); MCH 26.4 pg (25.7-33.7); MCHC 33.1 g/dl (32.0-35.9); MEAN CELL VOLUME 79.9 fl (80-96); NEUTROPHILS 52.1 % (42.8-82.8); PLATELET COUNT 220 K/MM3 (134-434); RDW 13.5 % (11.9-15.9); WHITE BLOOD COUNT 7.5 K/mm3 (4.0-10.0)
[2016-08-20 15:43] LABS: CREATININE 1.1 mg/dL (0.7-1.3)
[2016-08-20] MEDS: diphenhydrAMINE HCL 50 MG CAPSULE PO SCH (21:14)
[2016-08-20] MEDS: traZODone HCL 50 MG TABLET (FP) PO SCH (21:14)
[2016-08-20] MEDS: OLANZapine 10 MG TABLET PO SCH (21:14)
[2016-08-20] MEDS: THIAMINE HCL 100 MG TABLET (FP) PO SCH (21:14)
[2016-08-21] MEDS: PRENATAL VITAMINS W/ FOLIC ACID TABLET (FP) PO SCH (10:24)
[2016-08-21] MEDS: amLODIPine BESYLATE 10 MG TABLET (FP) PO SCH (10:25)
[2016-08-21] MEDS: ASPIRIN COATED 81 MG TABLET.EC PO SCH (10:25)
[2016-08-21] MEDS: RANITIDINE HCL 150 MG TABLET (FP) PO SCH ×2 (10:25→21:37)
[2016-08-21] MEDS: DIVALPROEX SODIUM 500 MG TABLET E.C. PO SCH ×2 (10:25→21:37)
[2016-08-21] MEDS: hydrOXYzine PAMOATE 50 MG CAPSULE (FP) PO PRN ×2 (12:24→23:32)
--- NOTE | 2016-08-21 14:37 | PN ---
[facility] Progress Note Note: Depakote blood level noted 86.135( WNL ) result discussed with the patient.
[2016-08-21] MEDS: diphenhydrAMINE HCL 50 MG CAPSULE PO SCH (21:36)
[2016-08-21] MEDS: THIAMINE HCL 100 MG TABLET (FP) PO SCH (21:37)
[2016-08-21] MEDS: OLANZapine 10 MG TABLET PO SCH (21:37)
[2016-08-21] MEDS: traZODone HCL 50 MG TABLET (FP) PO SCH (21:37)
[2016-08-22] MEDS: ASPIRIN COATED 81 MG TABLET.EC PO SCH (10:18)
[2016-08-22] MEDS: DIVALPROEX SODIUM 500 MG TABLET E.C. PO SCH ×2 (10:18→21:37)
[2016-08-22] MEDS: PRENATAL VITAMINS W/ FOLIC ACID TABLET (FP) PO SCH (10:18)
[2016-08-22] MEDS: amLODIPine BESYLATE 10 MG TABLET (FP) PO SCH (10:18)
[2016-08-22] MEDS: RANITIDINE HCL 150 MG TABLET (FP) PO SCH ×2 (10:19→21:37)
[2016-08-22] MEDS: hydrOXYzine PAMOATE 50 MG CAPSULE (FP) PO PRN (14:15)
[2016-08-22] MEDS: OLANZapine 10 MG TABLET PO SCH (21:37)
[2016-08-22] MEDS: diphenhydrAMINE HCL 50 MG CAPSULE PO SCH (21:37)
[2016-08-22] MEDS: THIAMINE HCL 100 MG TABLET (FP) PO SCH (21:38)
[2016-08-22] MEDS: traZODone HCL 50 MG TABLET (FP) PO SCH (21:38)
[2016-08-23] MEDS: hydrOXYzine PAMOATE 50 MG CAPSULE (FP) PO PRN ×3 (00:13→20:14)
[2016-08-23] MEDS: DIVALPROEX SODIUM 500 MG TABLET E.C. PO SCH ×2 (10:12→21:27)
[2016-08-23] MEDS: PRENATAL VITAMINS W/ FOLIC ACID TABLET (FP) PO SCH (10:12)
[2016-08-23] MEDS: ASPIRIN COATED 81 MG TABLET.EC PO SCH (10:12)
[2016-08-23] MEDS: RANITIDINE HCL 150 MG TABLET (FP) PO SCH ×2 (10:12→21:28)
[2016-08-23] MEDS: amLODIPine BESYLATE 10 MG TABLET (FP) PO SCH (10:12)
[2016-08-23] MEDS: OLANZapine 10 MG TABLET PO SCH (21:27)
[2016-08-23] MEDS: diphenhydrAMINE HCL 50 MG CAPSULE PO SCH (21:27)
[2016-08-23] MEDS: traZODone HCL 50 MG TABLET (FP) PO SCH (21:27)
[2016-08-23] MEDS: THIAMINE HCL 100 MG TABLET (FP) PO SCH (21:27)
[2016-08-24] MEDS: amLODIPine BESYLATE 10 MG TABLET (FP) PO SCH (10:05)
[2016-08-24] MEDS: PRENATAL VITAMINS W/ FOLIC ACID TABLET (FP) PO SCH (10:05)
[2016-08-24] MEDS: RANITIDINE HCL 150 MG TABLET (FP) PO SCH ×2 (10:05→21:47)
[2016-08-24] MEDS: ASPIRIN COATED 81 MG TABLET.EC PO SCH (10:05)
[2016-08-24] MEDS: DIVALPROEX SODIUM 500 MG TABLET E.C. PO SCH ×2 (10:05→21:46)
[2016-08-24] MEDS: hydrOXYzine PAMOATE 50 MG CAPSULE (FP) PO PRN (19:07)
[2016-08-24] MEDS: traZODone HCL 50 MG TABLET (FP) PO SCH (21:46)
[2016-08-24] MEDS: diphenhydrAMINE HCL 50 MG CAPSULE PO SCH (21:47)
[2016-08-24] MEDS: THIAMINE HCL 100 MG TABLET (FP) PO SCH (21:47)
[2016-08-24] MEDS: OLANZapine 10 MG TABLET PO SCH (21:48)
[2016-08-25] MEDS: PRENATAL VITAMINS W/ FOLIC ACID TABLET (FP) PO SCH (10:23)
[2016-08-25] MEDS: RANITIDINE HCL 150 MG TABLET (FP) PO SCH ×2 (10:23→21:48)
[2016-08-25] MEDS: DIVALPROEX SODIUM 500 MG TABLET E.C. PO SCH ×2 (10:23→21:48)
[2016-08-25] MEDS: amLODIPine BESYLATE 10 MG TABLET (FP) PO SCH (10:23)
[2016-08-25] MEDS: ASPIRIN COATED 81 MG TABLET.EC PO SCH (10:23)
[2016-08-25] MEDS: hydrOXYzine PAMOATE 50 MG CAPSULE (FP) PO PRN (14:04)
[2016-08-25 15:31] LABS: CREATININE 1.1 mg/dL (0.7-1.3)
[2016-08-25] MEDS: OLANZapine 10 MG TABLET PO SCH (21:48)
[2016-08-25] MEDS: diphenhydrAMINE HCL 50 MG CAPSULE PO SCH (21:48)
[2016-08-25] MEDS: THIAMINE HCL 100 MG TABLET (FP) PO SCH (21:48)
[2016-08-25] MEDS: traZODone HCL 50 MG TABLET (FP) PO SCH (21:49)
[2016-08-26 06:52] VITALS: BP 132/82; PULSE 80; TEMP 97.8
[2016-08-26] MEDS: DIVALPROEX SODIUM 500 MG TABLET E.C. PO SCH (09:02)
[2016-08-26] MEDS: amLODIPine BESYLATE 10 MG TABLET (FP) PO SCH (09:02)
[2016-08-26] MEDS: ASPIRIN COATED 81 MG TABLET.EC PO SCH (09:02)
[2016-08-26] MEDS: PRENATAL VITAMINS W/ FOLIC ACID TABLET (FP) PO SCH (09:02)
[2016-08-26] MEDS: RANITIDINE HCL 150 MG TABLET (FP) PO SCH (09:03)
--- NOTE | 2016-08-26 10:04 | PN ---
Psychiatric Progress Note Vital Signs: Vital Signs Period Temp Pulse Resp BP Sys/Angel Pulse Ox Last 24 Hr 97.8 F 80 18-18 132/82 Date of Session: 08/26/16 Chief Complaint:: discharge visit HPI: Patient addressed alcohol, cocaine , nicotine dependence comorbid Schizoafective disorder. ROS: GERD, bronchial asthma, hypercholesterolemia medically managed Current Medications: Active Medications Generic Name Dose Route Start Last Admin Trade Name Freq PRN Reason Stop Dose Admin Acetaminophen 650 mg 08/07/16 15:23 Tylenol - PO Q4H PRN FEVER OR PAIN Al Hydroxide/Mg Hydroxide 30 ml 08/07/16 15:23 Mylanta Oral Suspension - PO Q6H PRN DYSPEPSIA Albuterol Sulfate 2 puff 08/07/16 15:23 Ventolin Hfa Inhaler - IH Q4H PRN ASTHMA Amlodipine Besylate 10 mg 08/08/16 10:00 08/26/16 09:02 Norvasc - PO 10 mg DAILY CAM Administration Aspirin 81 mg 08/08/16 10:00 08/26/16 09:02 Ecotrin - PO 81 mg DAILY CAM Administration Diphenhydramine HCl 50 mg 08/17/16 22:00 08/25/16 21:48 Benadryl - PO 50 mg HS CAM Administration Divalproex Sodium 1,000 mg 08/07/16 22:00 08/25/16 21:48 Depakote - PO 1,000 mg HS CAM Administration Divalproex Sodium 500 mg 08/08/16 10:00 08/26/16 09:02 Depakote - PO 500 mg DAILY CAM Administration Eucalyptus/Menthol/Phenol/Sorbitol 1 each 08/07/16 15:23 Cepastat Lozenge - MM Q4H PRN SORE THROAT Guaifenesin 10 ml 08/07/16 15:23 Robitussin Dm - PO Q6H PRN COUGH Hydroxyzine Pamoate 50 mg 08/07/16 15:23 08/25/16 14:04 Vistaril - PO 50 mg Q4H PRN Administration AGITATION Ibuprofen 400 mg 08/07/16 15:23 Motrin - PO Q6H PRN PAIN Loperamide HCl 4 mg 08/07/16 15:23 Imodium - PO Q6H PRN DIARRHEA Magnesium Hydroxide 30 ml 08/07/16 15:23 08/22/16 21:39 Milk Of Magnesia - PO 30 ml DAILY PRN Administration CONSTIPATION Olanzapine 20 mg 08/07/16 22:00 08/25/16 21:48 Zyprexa - PO 20 mg HS CAM Administration Multivit/Folic Acid/Iron 1 tab 08/08/16 10:00 08/26/16 09:02 Vitamins (Sjr) - PO 1 tab DAILY CAM Administration Pseudoephedrine/Triprolidine 1 combo 08/07/16 15:23 Actifed - PO TID PRN NASAL CONGESTION Ranitidine HCl 150 mg 08/07/16 22:00 08/26/16 09:03 Zantac - PO 150 mg BID CAM Administration Thiamine HCl 100 mg 08/07/16 22:00 08/25/16 21:48 Vitamin B1 - PO 100 mg HS CAM Administration Trazodone HCl 150 mg 08/07/16 22:00 08/25/16 21:49 Desyrel - PO 150 mg HS CAM Administration Current Side Effect: No Lab tests ordered: Yes Lab tests reviewed: Yes Provider note:: Patient has completed today his treatment and met his goals, will continue to address his issues at [facility], patient gained insights into his addiction and motivated to continue maintain abstinence. Patient reports he learned a lot through this treatment, verbalized his solution to stay sober and adherent to every aspects of his outpatient plans , patient was encouraged to utilize all supports to prevent relapses. Depakote, Zyprexa and Trazodone well tolerated, scripts provided for 30 days, depakote blood level 86.135 WNL. Patient is stable for discharge today. Total face to face time:: 35 Mental Status Exam - Mental Status Exam Alert and Oriented to: Time, Place, Person Cognitive Function: Good Patient Appearance: Well Groomed Mood: Hopeful Affect: Appropriate, Mood Congruent Patient Behavior: Appropriate, Cooperative Speech Pattern: Clear, Appropriate Voice Loudness: Normal Thought Process: Intact, Goal Oriented Thought Disorder: Not Present Hallucinations: Denies Suicidal Ideation: Denies Homicidal Ideation: Denies Insight/Judgement: Good Sleep: Well Appetite: Good Muscle strength/Tone: Normal Gait/Station: Normal Psychiatric Treatment Plan - Problem List (1) Cocaine dependence Current Visit: No (2) Nicotine dependence Current Visit: No (3) Acid reflux Current Visit: No Qualifiers: Esophagitis presence: without esophagitis Qualified Code(s): K21.9 - Gastro-esophageal reflux disease without esophagitis (4) Asthma Current Visit: No Qualifiers: Asthma severity: mild intermittent Asthma complication type: uncomplicated Qualified Code(s): J45.20 - Mild intermittent asthma, uncomplicated (5) Hypertension Current Visit: No Qualifiers: Hypertension type: essential hypertension Qualified Code(s): I10 - Essential (primary) hypertension (6) Schizoaffective disorder Current Visit: No Comment: Self-report. (7) Alcohol dependence Current Visit: Yes
== END 2016-08-26 09:45 | disposition home or self-care (01) | DRG 772 ==
LOC: YASAS 12:36 → Y5N 12:37
PROVIDERS: ADMIT Psychiatry & Neurology Psychiatry; ATTEND Psychiatry & Neurology Psychiatry
PROC: HZ42ZZZ Group Counseling for Substance Abuse Treatment, Cognitive-Behavioral (ICD-10-PCS; principal; 2016-08-26)
DX: F10.20 Alcohol dependence, uncomplicated (principal); F14.20 Cocaine dependence, uncomplicated; F17.210 Nicotine dependence, cigarettes, uncomplicated; F25.9 Schizoaffective disorder, unspecified; I10 Essential (primary) hypertension; J45.20 Mild intermittent asthma, uncomplicated; K21.9 Gastro-esophageal reflux disease without esophagitis; Z59.0 Homelessness
CPT/HCPCS: 36415; 80048; 80164; 83036; 85025